=== PATIENT | male | born 1970 | race Hispanic/Latino ===

== ENCOUNTER 2023-05-09 07:28 | Emergency (ER) | payer OTHER ==
[~2023-05-09] VITALS: Ht 170.2 cm; Wt 99.8 kg
[2023-05-09] MEDS: TETRACAINE HCL 0.5% 4 ML OPHTH SOLN ONE (09:20)
[2023-05-09] MEDS: FLUORESCEIN SODIUM 1 STRIP STRIP ONE (09:20)
[2023-05-09] MEDS ORDERED: MOXIOS OD (11:23)
[2023-05-09] MEDS ORDERED: IBUP-2077 PO (11:23)
[2023-05-09 11:36] VITALS: BP 134/82; PULSE 87; RESP 16; O2SAT 99
== END 2023-05-09 11:37 | disposition home or self-care (01) ==
LOC: EDH 07:28
DX: H57.8A1 Foreign body sensation, right eye (principal); E11.9 Type 2 diabetes mellitus without complications; E78.00 Pure hypercholesterolemia, unspecified; Z90.49 Acquired absence of other specified parts of digestive tract; Z98.890 Other specified postprocedural states

== ENCOUNTER 2023-11-06 09:15 | Emergency (ER) | payer SELFPAY ==
[~2023-11-06] VITALS: Ht 170.2 cm; Wt 95.3 kg
[~2023-11-06 09:15] MED LIST: IBUP-2077 PO; MOXIOS OD
[2023-11-06 09:43] LABS: BASOPHILS # (AUTO) 0.06 K/uL (0.00-0.20); BASOPHILS % (AUTO) 0.9 % (0.0-5.0); EOSINOPHILS # (AUTO) 0.25 K/uL (0.00-0.70); EOSINOPHILS % (AUTO) 3.6 % (0.0-8.0); HEMATOCRIT 43.1 % (42-54); IMMATURE GRANULOCYTE ABSOLUTE 0.03 K/uL (0-1); LYMPHOCYTES # (AUTO) 2.5 K/uL (1.0-4.8); LYMPHOCYTES % (AUTO) 35.5 % (21.0-51.0); MEAN CORPUSCULAR HEMOGLOBIN 29.4 pg (27.0-33.0); MEAN CORPUSCULAR HGB CONC 34.3 g/dL (32.0-36.0); MEAN CORPUSCULAR VOLUME 85.7 fL (79-99); MONOCYTES # (AUTO) 0.5 K/uL (0.1-1.0); MONOCYTES % (AUTO) 6.5 % (3.0-13.0); NEUTROPHILS # (AUTO) 3.7 K/uL (1.8-7.7); NEUTROPHILS % (AUTO) 53.1 % (40.0-77.0); PLATELET COUNT (AUTO) 247 K/uL (130-400); RED BLOOD CELL COUNT(AUTO) 5.03 MIL/uL (4.50-6.20); RED CELL DISTRIBUTION WIDTH 12.7 % (11.0-15.5)
[2023-11-06 10:17] LABS: INR 0.95 (0.85-1.15); PROTHROMBIN TIME 10.3 SEC (9.6-11.6)
[2023-11-06 10:18] LABS: PARTIAL THROMBOPLASTIN TIME 27.3 SEC (26.3-35.5)
[2023-11-06 10:31] LABS: CREATININE 0.8 mg/dL (0.5-1.3); POTASSIUM 3.7 mmol/L (3.5-5.1)
[2023-11-06] MEDS ORDERED: CLOT45CR62 TP (11:22)
[2023-11-06] MEDS ORDERED: KETO10TA2 PO (11:35)
[2023-11-06] MEDS: KETOROLAC 15MG/ML VIAL (15MG/ML) IV ONE (11:40)
[2023-11-06] MEDS: MORPHINE 2 MG SYG IVP ONE (11:40)
[2023-11-06] MEDS: ONDANSETRON 4MG INJ IVP ONE (11:40)
[2023-11-06 12:04] VITALS: BP 129/76; PULSE 65; RESP 16; O2SAT 97
[2023-11-06 13:24] LABS: AMPHET/METH SCREEN,URINE NEGATIVE (NEGATIVE); BARBITURATE SCREEN, URINE NEGATIVE (NEGATIVE); BENZODIAZEPINES SCREEN,URINE NEGATIVE (NEGATIVE); CANNABINOID SCREEN,URINE NEGATIVE (NEGATIVE); COCAINE SCREEN,URINE NEGATIVE (NEGATIVE); OPIATE SCREEN,URINE NEGATIVE (NEGATIVE); PHENCYCLIDINE SCREEN,URINE NEGATIVE (NEGATIVE)
== END 2023-11-06 12:06 | disposition home or self-care (01) ==
LOC: EDH 09:15
DX: S29.011A Strain of muscle and tendon of front wall of thorax, initial encounter (principal); R07.89 Other chest pain; N48.1 Balanitis; E11.9 Type 2 diabetes mellitus without complications; E78.00 Pure hypercholesterolemia, unspecified; Z90.49 Acquired absence of other specified parts of digestive tract; X58.XXXA Exposure to other specified factors, initial encounter; Y93.89 Activity, other specified; Y92.89 Other specified places as the place of occurrence of the external cause; Y99.8 Other external cause status
CPT/HCPCS: 99285; 96374; 96375; 71045; 82550; 84484; 80048; 80305; 85025; 85610; 85730; 36415; 93005; J2270; J2405; J1885

== ENCOUNTER 2024-05-15 10:14 | Emergency (ER) | payer SELFPAY ==
[~2024-05-15] VITALS: Ht 170.2 cm; Wt 97.5 kg
[~2024-05-15 10:14] MED LIST changes: +CLOT45CR62 TP; +KETO10TA2 PO
[2024-05-15 10:57] LABS: RAPID GROUP A STREP negative (NEGATIVE)
[2024-05-15 10:58] LABS: SARS-CoV-2, RNA, NAAT NEGATIVE SARS CoV-2 (NEGATIVE)
[2024-05-15 11:09] LABS: INFLUENZA TYPE A Negative For Type A (NEGATIVE); INFLUENZA TYPE B Negative For Type B (NEGATIVE)
[2024-05-15] MEDS ORDERED: OXYM30SP27 NS (11:43)
[2024-05-15] MEDS ORDERED: BROM118S48 PO (11:43)
[2024-05-15] MEDS ORDERED: LORA10TA7 PO (11:43)
--- NOTE | 2024-05-15 11:44 | ERN ---
General Chief Complaint: Cough Stated Complaint: COUGH, FEVER, BODY ACHES Time Seen by MD: 10:20 Time Seen by Midlevel: 10:20 Source: patient History of Present Illness Initial Comments 53-year-old male who presents to the emergency department due to cough onset two days. Patient reports congestion, fever, body aches but denies any chest pain, abdominal pain, difficulty breathing, vomiting, diarrhea or further associated symptoms. PMHx DM Allergies: Coded Allergies: No Known Drug Allergies (Unverified Allergy, Unknown, 05/09/23) Home Meds Active Scripts Loratadine (Loratadine) 10 Mg Tablet, 1 TAB PO DAILY for allergy symptoms for 7 Days, #7 TAB 0 Refills Prov:LEONARD BERMUDEZ 05/15/24 Oxymetazoline HCl (Afrin) 0.05 % [place], 1 SPRAY NS BID for 3 Days, #15 ML 0 Refills Prov:LEONARD BERMUDEZ 05/15/24 D-Methorphan Hb/P-Epd HCl/Bpm (Bromfed Dm Cough Syrup) 2 Mg-30 Mg-10 Mg/5 Ml Syrup, 10 ML PO Q4HPRN for 5 Days, #300 ML Prov:LEONARD BERMUDEZ 05/15/24 Ketorolac Tromethamine (Ketorolac Tromethamine) 10 Mg Tablet, 10 MG PO BID for 5 Days, #10 TAB Prov:MARLYN WELSH 11/06/23 Clotrimazole (Clotrimazole) 1 % Cream.appl, 1 GM TP BID for 5 Days, #45 G Prov:MARLYN WELSH 11/06/23 Ibuprofen (Ibuprofen 800 mg Tab) 800 Mg Tab, 800 MG PO Q8H PRN for fever or pain, #30 TAB 0 Refills Prov:ELIZABETH BEARD NP 05/09/23 Moxifloxacin HCl (Vigamox 0.5% Ophth Soln) 0.5 % Opsol, 20 DROP OD TID for 7 Days, #5 DROP 1 drop right eye 3 times daily for 7 days. Prov:ELIZABETH BEARD PROJECT FACILITATOR 05/09/23 Past Medical History Past Medical History: Diabetes-Type II, High Cholesterol Past Surgical History: Cholecystectomy Surgical History Other: RT ELBOW SX ROS Dictation Constitutional: Positive for fever, body aches Negative for chills, and weight loss Eyes: Negative for injury, pain,redness, and discharge ENT: Positive for nasal congestion Negative for injury,pain or swelling Cardiovascular: Negative for chest pain, palpitations, and edema Respiratory: Positive for cough Negative for shortness of breath, and wheezing, Abdomen/GI: Negative for abdominal pain, nausea, vomiting, diarrhea, and constipation Back: Negative for injury and pain : Negative for painful urination, bleeding or discharge MS/Extremity: Negative for injury and deformity Skin: Negative for rash, and discoloration Neuro: Negative for headache, weakness, numbness, tingling, and seizure Psych: Negative for suicide ideation, homicidal ideation, and hallucinations Physical Exam Physical Exam Dictation General: awake, alert, no acute distress Head/Face: Normocephalic, atraumatic Eyes: normal conjunctiva ENT: oral cavity clear, oral mucosa moist Neck: Normal range of motion, supple Cardiovascular: RRR, normal S1/S2 Respiratory: CTAB, no respiratory distress, No rales or wheezes Abdomen: Soft, non-tender, non-distended, no guarding or rebound. Skin: Warm, dry, normal turgor, no rash MS/Extremity: Pulses equal, no cyanosis, neurovascular intact, FROM Neuro: COAx4, GCS 15, no neurological deficits, normal gait, Psych: Normal behavior, mood, and affect normal Results Laboratory and Microbiology Lab and Micro Result Laboratory Tests Test 05/15/24 10:25 Influenza Type A Antigen Negative For Type A Influenza Type B Antigen Negative For Type B SARS-CoV-2, RNA, NAAT NEGATIVE SARS CoV-2 Group A Streptococcus Rapid negative (NEGATIVE) Labs Reviewed?: Yes MDM MDM: Differential diagnosis: Viral illness, strep, influenza, COVID Rationale: 53-year-old male who presents to the emergency department due to cough onset two days. Patient reports congestion, fever, body aches but denies any chest pain, abdominal pain, difficulty breathing, vomiting, diarrhea or further associated symptoms. PMHx DM Per physical examination patient is in no acute distress, nonlabored breathing, abdomen is soft nontender. SARs, influenza, strep negative. Patient was educated on findings and diagnosis. Advised to follow up with PCP. Return to the emergency department if any worsening symptoms. Patient and family member verbalized understanding. Patient stable for discharge. There are no social concerns with this patient. I independently interpreted the test that were performed, results were reviewed by me and considered findings on radiology if ordered. Medical management and examination interpretation discussions were had by me with other qualified healthcare professionals as indicated for the patient's care. ED Course Orders Procedure Category Date Status Time Covid Rna Naat LAB 05/15/24 Complete 10:19 Influenza Type A & B, LAB 05/15/24 Complete Rapid 10:19 Rapid (Group A Strep) LAB 05/15/24 Complete 10:19 Vital Signs Date Time Temp Pulse Resp B/P (MAP) Pulse Ox O2 Delivery O2 Flow Rate FiO2 05/15/24 10:19 98.2 88 16 122/72 96 Room Air 0 DX & DISP Disposition: Discharge Departure Impression: Primary Impression: Viral illness Additional Impression: Cough Condition: Stable Scripts Loratadine (Loratadine) 10 Mg Tablet 1 TAB PO DAILY for allergy symptoms for 7 Days, #7 TAB 0 Refills Prov: LEONARD BERMUDEZ 05/15/24 Oxymetazoline HCl (Afrin) 0.05 % [place] 1 SPRAY NS BID for 3 Days, #15 ML 0 Refills Prov: LEONARD BERMUDEZ 05/15/24 D-Methorphan Hb/P-Epd HCl/Bpm (Bromfed Dm Cough Syrup) 2 Mg-30 Mg-10 Mg/5 Ml Syrup 10 ML PO Q4HPRN for 5 Days, #300 ML Prov: LEONARD BERMUDEZ 05/15/24 Additional Instructions: Discharge home. Rest. Follow up with primary care DrMoises in 24 hours. Return to the ER for any acute changes or worsening symptoms. If any medications were prescribed take as directed. Okay to continue home me dications unless otherwise discussed during your visit in the emergency room today. Patient was also advised to follow-up with primary care physician in 1 to 2 days for continued monitoring. Referrals: TRAV KILPATRICK MD (PCP) I participated in the following activities of this patient's care: For this patient encounter, I reviewed the PA or PROJECT FACILITATOR documentation, treatment plan, and medical decision making. I did not have [id number] time with this patient. I will sign as the reviewing DrMoises And agree with the treatment plan and disposition. LEONARD BERMUDEZ May 15, 2024 11:44
[2024-05-15 12:26] VITALS: BP 120/70; PULSE 88; RESP 16; TEMP 98.2; O2SAT 98
== END 2024-05-15 12:33 | disposition home or self-care (01) ==
LOC: EDH 10:14
DX: B34.9 Viral infection, unspecified (principal); E11.9 Type 2 diabetes mellitus without complications; E78.00 Pure hypercholesterolemia, unspecified; Z90.49 Acquired absence of other specified parts of digestive tract; Z20.822 Contact with and (suspected) exposure to COVID-19
CPT/HCPCS: 87635; 87804; 87880; 99283